=== PATIENT | male | born 1930 | race Caucasian/White ===

== ENCOUNTER 2017-11-10 08:35 | Observation (INO) | payer SELFPAY ==
[~2017-11-10] VITALS: Ht 177.8 cm; Wt 92.5 kg
[~2017-11-10 08:35] MED LIST: ASPIR-LOW81 MG PO; ASPIRIN81 M1 PO; Advair HFA 115/21 IH; Benadryl PO; CHOLESTYRAMINE P4 GM PO; Cipro PO; Combivent IH; DuoNeb IH; Ecotrin PO; FLONASE16 G1 NS; Feosol PO; GARLIC600 MG PO; Garlic PO; IMDUR30 MG PO; ISOSORBIDE DINI20 MG PO; Levaquin PO; Levothroid,Synthroid PO; NIASPAN500 MG PO; Niacin PO; PRILOSEC OTC20 MG PO; SENOKOT S,PE1 TABLET PO; SLO-NIACIN500 MG PO; SYNTHROID75 MCG PO; Singulair PO; THERAGRAN1 TABLET PO; TOPROL XL25 MG PO; TOPROL XL50 MG PO; Vicodin,Norco 5/325 PO; predniSONE PO
[2017-11-10 09:18] LABS: BASOPHIL COUNT 0.1 K/uL (0-0.1); EOSINOPHIL (%) 1.7 % (0-5); EOSINOPHIL COUNT 0.2 K/uL (0-0.3); HEMATOCRIT 41.4 % (38.0-50.0); IMMATURE GRANULOCYTE COUNT 0.1 K/uL; INSTRUMENT ABS NEUTROPHIL CT 7.3 K/uL; LYMPHOCYTE COUNT 1.5 K/uL (1.0-2.8); MCH 31.5 PG (29.0-34.0); MCHC 34.1 G/DL (30.0-36.0); MCV 92.6 FL (86-99); MEAN PLAT.VOLUME 10.3 uM^3 (9.0-12.4); MONOCYTE (%) 9.3 % (3-12); MONOCYTE COUNT 0.9 K/uL (0-0.8); NEUTROPHIL (%) 72.8 % (45-76); NEUTROPHIL COUNT 7.3 K/uL (1.8-6.4); PLATELET COUNT 152 K/uL (156-360); RBC DIS.WIDTH-SD 40.9 % (39-53); RED BLOOD COUNT 4.47 M/uL (4.00-5.50); WHITE BLOOD COUNT 10.1 K/uL (4.1-10.2)
[2017-11-10 09:26] LABS: INTER. NORMALIZED RATIO 1.1; PROTHROMBIN TIME 12.8 SEC (10.2-12.9)
[2017-11-10 09:27] LABS: CHLORIDE 97 mEq/L (99-109); POTASSIUM 4.2 mEq/L (3.7-5.4); SODIUM 130 mEq/L (136-147)
[2017-11-10 09:28] LABS: GLUCOSE 102 mg/dL (70-99); PTT 30.4 SEC (25-37)
[2017-11-10 09:30] LABS: ANION GAP 6 MEQ/L (2-14)
[2017-11-10 09:32] LABS: GFR ESTIMATE (CALCULATED) > 59 mL/min/ (58.99-99999)
[2017-11-10 09:33] LABS: UREA NITROGEN (BUN) 18 mg/dL (9-23)
[2017-11-10 09:38] LABS: TROP-I INTERPRETATION NEGATIVE; TROPONIN-I < 0.01 ng/mL (0.0-0.30)
[2017-11-10] MEDS ORDERED: FLONASE16 G1 BOTH NARES (11:15)
[2017-11-10] MEDS ORDERED: VITAMIN D2000 UNIT PO (11:15)
[2017-11-10] MEDS ORDERED: GARLIC600 MG PO (11:16)
[2017-11-10] MEDS ORDERED: RESTASIS MULTI5.5 ML BOTH EYES (11:16)
[2017-11-10 11:55] LABS: Estimated Average Glucose 123 mg/dL (70-123); HEMOGLOBIN A1c (GLYCOHEMOGLOB) 5.9 % HGB (Below 5.7)
[2017-11-10 13:12] LABS: HDL CHOLESTEROL 44 MG/DL (Desirable>=40); LDL CHOLESTEROL 96 mg/dL (Desirable<100); NON-HDL CHOLESTEROL 106 mg/dL (Desirable<160); TOTAL CHOLESTEROL 150 mg/dL (Desirable<200); TRIGLYCERIDES 51 MG/DL (Normal: <150)
[2017-11-10 14:30] VITALS: BP 118/68
[2017-11-10 15:36] LABS: TROP-I INTERPRETATION NEGATIVE; TROPONIN-I < 0.01 ng/mL (0.0-0.30)
[2017-11-10 16:33] VITALS: BP 133/62
[2017-11-10 21:00] VITALS: BP 104/66
[2017-11-10 21:13] LABS: TROP-I INTERPRETATION NEGATIVE; TROPONIN-I < 0.01 ng/mL (0.0-0.30)
[2017-11-11] VITALS: BP 113/63
[2017-11-11 04:05] VITALS: BP 117/66
[2017-11-11 08:21] VITALS: BP 136/69
[2017-11-11 11:49] VITALS: BP 99/58
== END 2017-11-11 13:43 | disposition home or self-care (01) ==
LOC: EME 08:35 → EDOF 10:21 → 5WEST 10:21 → EDOF 10:21 → ENRESERV 10:26 → 5WEST 14:10
PROVIDERS: Emergency Medicine; Internal Medicine
DX: R07.9 Chest pain, unspecified (principal); H53.8 Other visual disturbances; R61 Generalized hyperhidrosis; R42 Dizziness and giddiness; I25.10 Atherosclerotic heart disease of native coronary artery without angina pectoris; I25.2 Old myocardial infarction; Z95.1 Presence of aortocoronary bypass graft; E03.9 Hypothyroidism, unspecified; E78.5 Hyperlipidemia, unspecified; I27.20 Pulmonary hypertension, unspecified; I70.0 Atherosclerosis of aorta; I35.0 Nonrheumatic aortic (valve) stenosis; I34.0 Nonrheumatic mitral (valve) insufficiency; J44.9 Chronic obstructive pulmonary disease, unspecified; M19.90 Unspecified osteoarthritis, unspecified site; K21.9 Gastro-esophageal reflux disease without esophagitis; Z79.82 Long term (current) use of aspirin; Z88.5 Allergy status to narcotic agent
CPT/HCPCS: 70551; 71010; 80048; 80061; 83036; 84484; 85025; 85379; 85610; 85730; 93005; 93306; 93880; 99281; 99284; G0378; J1650